=== PATIENT | female | born 1965 | race Caucasian/White ===

== ENCOUNTER → 2020-08-02 09:56 | Outpatient (CLI) | payer OTHER, SELFPAY ==
[2020-08-02 10:46] LABS: Add Manual Diff / Slide Review NO; Basophils Absolute Auto 0 /uL (0-100); Basophils Percent Auto 0.8 % (0-2); Eosinophils Absolute Auto 100 /uL (0-450); Eosinophils Percent Auto 2.4 % (2-4); Hematocrit 43.2 % (36-46); Hemoglobin 14.9 g/dL (12.0-16.0); Lymphocytes Absolute Auto 1800 /uL (1100-4500); Lymphocytes Percent Auto 37.7 % (25-40); Mean Corpuscular HGB Conc 34.5 % (30-36); Mean Corpuscular Hemoglobin 34.9 PG (26-34); Mean Corpuscular Volume 101.1 fL (80-100); Monocytes Absolute Auto 500 /uL (0-900); Monocytes Percent Auto 10.7 % (3-14); Neutrophils Absolute Auto 2300 /uL (1500-7000); Neutrophils Percent Auto 48.4 % (50-75); Platelet Count 239 X10^3/uL (150-400); Red Blood Cell Count 4.27 X10^6/uL (4.0-5.2); Red Cell Distribution Width 13.1 % (11.6-14.8); White Blood Cell Count 4.7 X10^3/uL (4.5-11.0)
[2020-08-02 11:43] LABS: Alanine Aminotransferase 25 IU/L (<35); Albumin 4.9 g/dL (3.5-5.0); Albumin Globulin Ratio 1.4 (1.0-2.8); Alkaline Phosphatase 69 U/L (38-126); Aspartate Aminotransferase 34 IU/L (14-36); BUN Creatinine Ratio 22.9 (6-22); Bilirubin Total 1.1 mg/dL (0.2-1.3); Blood Urea Nitrogen 16 mg/dL (7-17); Calcium 9.5 mg/dL (8.4-10.2); Carbon Dioxide 32 mmol/L (22-32); Chloride 100 mmol/L (98-107); Cholesterol 262 mg/dL (140-199); Estimated Glomerular Filt Rate > 60.0 mL/min (>60); Globulin 3.4 g/dL (1.7-4.1); Glucose 102 mg/dL (70-100); HEMOLYSIS < 15 (0-50); Potassium 3.7 mmol/L (3.4-5.1); Sodium 136 mmol/L (137-145); Total Protein 8.3 g/dL (6.3-8.2); Triglycerides 70 mg/dL (35-150)
[2020-08-02 11:45] LABS: HEMOLYSIS < 15 (0-50)
[2020-08-02 11:56] LABS: Total Iron Binding Capacity 400 ug/dL (265-497); Transferrin 319 mg/dL (206-381)
[2020-08-02 11:57] LABS: HDL Cholesterol 125 mg/dL (40-60); LDL Cholesterol Calculated 123 mg/dL (<100)
[2020-08-02 12:17] LABS: Ferritin 70 ng/mL (11-264)
[2020-08-02 14:37] LABS: Iron 104 ug/dL (37-170); Percent Iron Saturation 26 % (15-50)
== END ==
PROVIDERS: Referring Provider Physician Assistant; Visit Provider Physician Assistant
DX: E78.2 Mixed hyperlipidemia (principal); R23.2 Flushing; R63.5 Abnormal weight gain
CPT/HCPCS: 36415; 80053; 80061; 82728; 83540; 83550; 84443; 85025

== ENCOUNTER → 2020-08-26 10:38 | Outpatient (CLI) | payer OTHER, SELFPAY ==
--- NOTE | 2020-08-26 | DI.US.S_ITS ---
PROCEDURE: US PELVIC COMPLETE INDICATIONS: POSTMENOPAUSAL BLEEDING TECHNIQUE: Real-time scanning was performed of the pelvic organs, with image documentation. Additional endovaginal scanning was necessary due to incomplete visualization of the adnexal and endometrial structures by transabdominal scanning. COMPARISON: None. FINDINGS: Uterus: Uterus is normal in size at 7.3 x 4.5 x 3.4 cm. The endometrium measures 1.7 mm in combined thickness. Posterior subserosal fibroid measuring 14 mm. Ovaries: Normal ovaries measuring 3.5 x 1.9 x 1.6 cm on the right and 3.4 x 1.4 x 2.4 cm on the left. Small follicular cyst present. Other: No pathologic free abdominal or pelvic fluid. IMPRESSION: 1. 14 mm subserosal fibroid. 2. Bilateral follicular cyst swith dominant follicle on the right measuring up to 15 mm. Dictated by: Yannick Rios [facility] Interpreted: Jony Pedro MD on 08/26/2020 at 16:59 Approved by: Jony Pedro M.D. on 08/26/2020 at 17:03
== END ==
PROVIDERS: PCP Physician Assistant; Referring Provider Physician Assistant; Visit Provider Physician Assistant
DX: N95.0 Postmenopausal bleeding (principal); N95.1 Menopausal and female climacteric states; D28.2 Benign neoplasm of uterine tubes and ligaments; N83.02 Follicular cyst of left ovary; N83.01 Follicular cyst of right ovary
CPT/HCPCS: 76830; 76856

== ENCOUNTER → 2020-08-27 12:36 | Outpatient (CLI) | payer OTHER, SELFPAY ==
[2020-08-27] MEDS: COVID-19 VACC #1, MRNA(MOD) 100 MCG/0.5 ML VIAL IM (12:44)
== END ==
PROVIDERS: PCP Physician Assistant; Visit Provider Internal Medicine
DX: Z23 Encounter for immunization (principal)
CPT/HCPCS: 0011A; 91301

== ENCOUNTER → 2020-09-06 10:29 | Outpatient (CLI) | payer OTHER, SELFPAY ==
[2020-09-06 11:45] LABS: Carcinoembryonic Antigen 1.6 ng/mL (0.1-3.0)
[2020-09-06 11:50] LABS: Cancer Antigen 125 < 5.5 U/mL (0-35)
[2020-09-07 06:11] LABS: Cancer (Carbohydrate) Ag 19-9 25 U/mL (0-35)
[2020-09-09 00:44] LABS: Human Epididymis Prot 4 45.8 pmol/L (0.0-105.2)
== END ==
PROVIDERS: PCP Physician Assistant; Referring Provider Obstetrics & Gynecology; Visit Provider Obstetrics & Gynecology
DX: N83.209 Unspecified ovarian cyst, unspecified side (principal)
CPT/HCPCS: 36415; 82378; 86301; 86304; 86305

== ENCOUNTER → 2020-09-22 12:36 | Outpatient (CLI) | payer OTHER, SELFPAY ==
[2020-09-22] MEDS: COVID-19 VACC #2, MRNA(MOD) 100 MCG/0.5 ML VIAL IM (12:40)
== END ==
PROVIDERS: PCP Physician Assistant; Visit Provider Internal Medicine
DX: Z23 Encounter for immunization (principal)
CPT/HCPCS: 0012A; 91301

== ENCOUNTER → 2020-10-14 10:39 | Outpatient (CLI) | payer OTHER, SELFPAY ==
--- NOTE | 2020-10-14 10:43 | DI.US.S_ITS ---
PROCEDURE: US PELVIC COMPLETE INDICATIONS: 3 MONTH FOLLOW-UP OVARIAN CYSTS TECHNIQUE: Real-time scanning was performed of the pelvic organs, with image documentation. Additional endovaginal scanning was necessary due to incomplete visualization of the adnexal and endometrial structures by transabdominal scanning. COMPARISON: [facility], US, US PELVIC COMPLETE, 08/26/2020, 10:57. FINDINGS: Uterus: Uterus is normal in size at 6.1 x 3.2 x 4.5 cm and demonstrates a submucosal fibroid on the right posteriorly that measures 1.2 x 0.8 x 1.3 cm. The endometrium measures 3 mm in combined thickness. Ovaries: The right ovary measures 1.8 x 1.2 x 1.9 cm. The previously seen right ovarian cyst has resolved. The left ovary measures 1.6 x 0.8 x 1.5 cm. The ovaries have a normal sonographic appearance. No adnexal masses are seen. Other: No pathologic free abdominal or pelvic fluid. IMPRESSION: Normal pelvic ultrasound, without abnormal ovarian cysts now seen. Uterine fibroid again seen. Dictated by: Deep Wilson M.D. on 10/14/2020 at 13:57 Approved by: Deep Wilson M.D. on 10/14/2020 at 13:59
== END ==
PROVIDERS: PCP Physician Assistant; Referring Provider Obstetrics & Gynecology; Visit Provider Obstetrics & Gynecology
DX: N83.209 Unspecified ovarian cyst, unspecified side (principal); D25.0 Submucous leiomyoma of uterus; Z78.0 Asymptomatic menopausal state
CPT/HCPCS: 76830; 76856